=== PATIENT | male | born 1950 | race Caucasian/White ===

== ENCOUNTER 2020-09-27 19:14 | Emergency (ER) | payer OTHER ==
[2020-09-27] MEDS ORDERED: CYCLOBENZAPRINE10 MG PO (21:53)
[2020-09-27] MEDS ORDERED: MEDROL 4MG DOSEP4 MG PO (21:53)
== END 2020-09-27 22:10 | disposition home or self-care (01) ==
LOC: FER 19:14
DX: S06.0X0A Concussion without loss of consciousness, initial encounter (principal); S00.83XA Contusion of other part of head, initial encounter; M54.2 Cervicalgia; K21.9 Gastro-esophageal reflux disease without esophagitis; E78.5 Hyperlipidemia, unspecified; E03.9 Hypothyroidism, unspecified; Z79.899 Other long term (current) drug therapy; Z88.2 Allergy status to sulfonamides; Z91.030 Bee allergy status; V43.52XA Car driver injured in collision with other type car in traffic accident, initial encounter; Y92.410 Unspecified street and highway as the place of occurrence of the external cause
CPT/HCPCS: 70450; 72125